=== PATIENT | female | born 1960 | race Caucasian/White ===

== ENCOUNTER 2019-06-08 11:27 | Inpatient (IN) | payer MEDICARE ==
[~2019-06-08] VITALS: Ht 170.2 cm; Wt 72.0 kg
--- NOTE | 2019-06-08 11:27 | NUR ---
PT TO ROOM VIA WC IN NO DISTRESS
[2019-06-08] MEDS ORDERED: PROTONIX40 M2 PO (11:45)
[2019-06-08] MEDS ORDERED: EQL STOOL SOFT100 MG PO (11:46)
[2019-06-08] MEDS ORDERED: DULOXETINE HCL60 MG PO (11:46)
[2019-06-08] MEDS ORDERED: MODAFINIL200 MG PO (11:47)
[2019-06-08] MEDS ORDERED: ROPINIROLE1 MG PO (11:48)
[2019-06-08] MEDS ORDERED: ATOMOXETINE40 MG PO (11:48)
[2019-06-08] MEDS ORDERED: MAGNESIUM OXID400 M2 PO (11:49)
[2019-06-08] MEDS ORDERED: BUSPIRONE10 MG PO (11:49)
[2019-06-08] MEDS ORDERED: ZOFRAN4 MG PO (11:50)
[2019-06-08] MEDS ORDERED: GABAPENTIN300 M2 PO (11:50)
[2019-06-08] MEDS ORDERED: PROPRANOLOL HC120 MG PO (11:51)
[2019-06-08] MEDS ORDERED: [UNRECOGNIZED DRUG - OTHER] (11:53)
[2019-06-08] MEDS ORDERED: BREO ELLIPTA 101 INH IN (11:54)
[2019-06-08] MEDS ORDERED: OXYCODONE5 M1 PO (11:55)
[2019-06-08] MEDS ORDERED: PROAIR HFA108 MCG/AC IN (11:55)
--- NOTE | 2019-06-08 12:18 | NUR ---
LEFT CHEST WALL IMPLANTED PORT ACCESS USING STERILE TECHNIQUE WITH GOOD ASPIRATE NOTED, PT TOLERATED WELL
[2019-06-08 13:02] LABS: HEMATOCRIT 22.2 % (37.0-47.0); HEMOGLOBIN 7.6 g/dl (12.0-16.0); MEAN CELL VOLUME 87.7 fL CALC (80.0-100.0); MEAN CORPUSCULAR HGB CONC 34.2 g/L CALC (32.0-36.0); NEUT# 0.09 thou/uL (2.00-7.15); RED BLOOD COUNT 2.53 mill/uL (4.20-5.60); RED CELL DISTRI WIDTH 17.1 % (11.5-15.5)
[2019-06-08 13:04] LABS: ALBUMIN 3.9 g/dL (3.2-5.0); ALKALINE PHOSPHATASE 102 u/l (38-126); ANION GAP 12 (6-22 (CALC)); BILIRUBIN, TOTAL 0.8 mg/dL (0.0-1.4); BUN 14 mg/dL (7-17); BUN/CREATININE RATIO 17 (12-20 (CALC)); CARBON DIOXIDE 27 mmol/l (22-30); CHLORIDE 103 mmol/l (95-108); CREATININE 0.8 mg/dL (0.5-1.0); GFR > 60 ML/MIN (>=60 (CALC)); GFR FOR AFR.AMER. > 60 ML/MIN (>=60 (CALC)); SGOT/AST 30 u/l (14-36); SODIUM 138 mmol/l (137-146); TOTAL PROTEIN 6.7 g/dL (6.3-8.2)
[2019-06-08 13:06] LABS: D-DIMER 0.56 mg/L (0.19-0.60); PROTHROMBIN TIME 10.7 SECONDS (9.0-12.5)
--- NOTE | 2019-06-08 13:34 | NUR ---
PT AWARE OF PLANNED ADMISSION AND VERBALOIZES CONSENT AND UNDERSTANDING
--- NOTE | 2019-06-08 13:55 | NUR ---
LABWORK DRAWN FOR TYPE AND SCREEN RELATED TO LOW HGB.
--- NOTE | 2019-06-08 15:02 | NUR ---
REPORT CALLED TO MARIETTA WOODS ON MED SURG.
--- NOTE | 2019-06-08 15:15 | NUR ---
PT TRANSFERRRED TO MED SURG ROOM 291 VIA WHEELCHAIR, ON TELE, FAMILY MEMBER AT SIDE AT TIME OF TRASNPORT, SANDEEP ALLISON AT BEDSIDE ON ARRIVAL AND NURSE MARIETTA WOODS AWARE OF ARRIVAL. MAXWELLILISA INSTRUCTED TO TAKE PERSONAL MEDICATIONS HOME WITH THEM
--- NOTE | 2019-06-08 15:15 | NUR ---
PT ARRIVED VIA STRETCHER. INTRODUCTIONS MADE. ORIENTED TO CALL LIGHT AND ROOM. DISCUSSED PLAN OF CARE.
[2019-06-08 15:29] VITALS: BP 128/72
--- NOTE | 2019-06-08 16:46 | NUR ---
PT DESMOND AGUIAR FROM OUTSIDE, DENIES ANY NEEDS.
--- NOTE | 2019-06-08 18:45 | NUR ---
REPORT FROM MARIETTA WOODS. PT SITTING UP IN BED WITH FAMILY MEMBER AT BEDSIDE. PT ON NEUTROPENIC PRECAUTIONS. NO APPARENT RESPIRATORY DISTRESS NOTED. PT REQUESTING APAP FOR GENERALIZED ACHES AND PAINS. DISCUSS POC. PT VERBALIZED UNDERSTANDING. CALL LIGHT WITHIN REACH. WILL CONTINUE TO MONITOR.
[2019-06-08 19:00] VITALS: BP 131/70
--- NOTE | 2019-06-08 23:46 | NUR ---
PT MEDICATED FOR BILATERAL LEG PAIN WITH PRN PAIN MEDICATION. SNACK PROVIDED UPON REQUEST. PT DENIES ANY OTHER WANTS OR NEEDS. NO APPARENT DISTRESS NOTED. CALL LIGHT WITHIN REACH. WILL CONTINUE TO MONITOR.
[2019-06-09 00:55] VITALS: BP 126/80
[2019-06-09 03:52] VITALS: BP 112/69
--- NOTE | 2019-06-09 04:30 | NUR ---
LABS OBTAINED FROM ACCESSED PORT. FLUSHED PER PROTOCOL. PT TOLERATED WELL.
[2019-06-09 05:35] LABS: ANION GAP 11 (6-22 (CALC)); BUN 17 mg/dL (7-17); BUN/CREATININE RATIO 20 (12-20 (CALC)); CARBON DIOXIDE 29 mmol/l (22-30); CHLORIDE 104 mmol/l (95-108); CREATININE 0.9 mg/dL (0.5-1.0); GFR > 60 ML/MIN (>=60 (CALC)); GFR FOR AFR.AMER. > 60 ML/MIN (>=60 (CALC)); SODIUM 140 mmol/l (137-146)
[2019-06-09 06:02] LABS: HEMATOCRIT 22.7 % (37.0-47.0); HEMOGLOBIN 7.7 g/dl (12.0-16.0); IMMATURE GRANULOCYTES 1.2 % (0.0-5.0); MEAN CORPUSCULAR HGB 30.2 pG CALC (26.0-32.0); MEAN CORPUSCULAR HGB CONC 33.9 g/L CALC (32.0-36.0); NEUT# 0.22 thou/uL (2.00-7.15); RED BLOOD COUNT 2.55 mill/uL (4.20-5.60)
[2019-06-09 08:37] VITALS: BP 126/79
--- NOTE | 2019-06-09 08:57 | NUR ---
ASSESSMENT DONE TELE IN PLACE. PT IS A&O X3. MEDICATED PT WITH ROXICODONE FOR PAIN IN LEGS SEE EMAR. PT HAS A DRY COUGH. FAMILY IN ROOM. PT STATED SHE NEEDS A REFILL ON MODAFINIL AND STATED SHE WILL ASK THE DOCTOR. PT REFUSED FOR ME TO SEND HER HOME MEDICATIONS TO PHARMACY. PT TOOK HER HOME MEDICATION ATOMOEXETINE AND PROPRANOLOL. CALL LIGHT IN REACH.
[2019-06-09 11:35] VITALS: BP 114/79
--- NOTE | 2019-06-09 12:00 | NUR ---
PT IS TRYING TO EAT HER LUNCH. FAMILY IN ROOM. PT DENIES NEEDS AT THIS TIME. CALL LIGHT IN REACH.
--- NOTE | 2019-06-09 16:30 | NUR ---
PT IS RESTING IN BED WITH NO S/S OF DISTRESS NOTED. PT DENIES NEEDS AT THIS TIME CALL LIGHT IN REACH.
[2019-06-09 16:46] VITALS: BP 106/71
--- NOTE | 2019-06-09 19:30 | NUR ---
PATIENT RESTING IN BED IN HIGH FOWLERS POSITION-APPETITE FOR DINNER WAS POOR. STATES THAT SHE CAN'T EAT AT THIS TIME. PATIENT IS ON REVERSE ISOLATION FOR SEVERE NEUTOPENIA-PRECAUTIONS MAINTAINED. TELE MONITOR IN PLACE. LEFT UPPER CHEST PORT ACCESSED AND APPEARS HEALTHY AT THIS TIME. SAFETY PRECAUTIONS REINFORCED. CALL LIGHT IN REACH. WILL CONT TO MONITOR.
[2019-06-09 19:45] VITALS: BP 106/67
--- NOTE | 2019-06-09 21:00 | NUR ---
RESTING IN BED-TEARFUL ABOUT CURRENT MEDICAL CONDITION. ALLOWED PATIENT TO VENT AND OFFERED REASSURANCE. PATIENT MEDICATED FOR BLE PAIN WITH ROXICODONE IR ORDERED FOR PAIN. PATIENT PROVIDED WITH PRINTOUT INFO SHEETS REGUARDING DARREN THAT SHE RECIEVED EARLIER TODAY. REVERSE ISOLATION MAINTAINED. CALL LIGHT IN REACH. WILL CONT TO MONITOR.
[2019-06-10] VITALS: BP 107/71
--- NOTE | 2019-06-10 | NUR ---
PATIENT RESTING IN BED WITH EYES CLOSED. RESP ARE EVEN AND UNLABORED. CALL LIGHT IN REACH. WILL CONT TO MONITOR.
[2019-06-10 04:00] VITALS: BP 104/63
--- NOTE | 2019-06-10 05:00 | NUR ---
PATIENT RESTING IN BED WITH HOB ELEVATED. LABS DRAWN WITHOUT ANY DIFFICULTY FROM LEFT UPPER CHEST PORT-GOOD BLOOD RETURN AND FLUSHED PER PROTOCOL ERIC SALINE AND HEPARIN. PATIENT WITH QUESTIONS ABOUT HER CHEMO TREATMENT CURRENT DIAGNOSIS. ALLOWED PATIENT TO VERBALIZE HER CONCERNS. TEARFUL AT TIMES. PATIENT C/O HEADACHE AND MEDICATED WITH TYLENOL 650MG PO FOR PAIN. REVERSE ISOLATION MAINTAINED. CALL LIGHT IN REACH. WILL CONT TO MONITOR.
[2019-06-10 06:16] LABS: ALBUMIN 3.6 g/dL (3.2-5.0); ALKALINE PHOSPHATASE 87 u/l (38-126); ANION GAP 11 (6-22 (CALC)); BILIRUBIN, TOTAL 0.5 mg/dL (0.0-1.4); BUN 15 mg/dL (7-17); BUN/CREATININE RATIO 18 (12-20 (CALC)); CARBON DIOXIDE 28 mmol/l (22-30); CHLORIDE 103 mmol/l (95-108); CREATININE 0.8 mg/dL (0.5-1.0); GFR > 60 ML/MIN (>=60 (CALC)); GFR FOR AFR.AMER. > 60 ML/MIN (>=60 (CALC)); POTASSIUM 3.6 mmol/l (3.5-5.1); SGOT/AST 21 u/l (14-36); SODIUM 139 mmol/l (137-146); TOTAL PROTEIN 6.4 g/dL (6.3-8.2)
[2019-06-10 06:34] LABS: HEMATOCRIT 21.4 % (37.0-47.0); HEMOGLOBIN 7.1 g/dl (12.0-16.0); IMMATURE GRANULOCYTES 4.8 % (0.0-5.0); MEAN CELL VOLUME 90.7 fL CALC (80.0-100.0); MEAN CORPUSCULAR HGB 30.1 pG CALC (26.0-32.0); MEAN CORPUSCULAR HGB CONC 33.2 g/L CALC (32.0-36.0); NEUT# 0.18 thou/uL (2.00-7.15); RED BLOOD COUNT 2.36 mill/uL (4.20-5.60); RED CELL DISTRI WIDTH 17.3 % (11.5-15.5)
--- NOTE | 2019-06-10 07:00 | NUR ---
SHIFT CHANGE REPORT, PT AWAKE ALERT AND ORIENTED SITTING UP IN BED, DENIES PAIN AT THIS TIME, VOICES CONCERN ABOUT HER MEDICATION WHICH SHE IS NOT ABLE TO TAKE HERE THEY ARE NOT DISPENSED AT OUR PHARMACY, ADVISED TO BRING MEDS FROM HOME BUT STATED SHE HAS NONE AT HOME. ADVISED TO ADDRESS CONCERNS WITH MD WHEN HE ROUNDS, CALL AVILES IN REACH, WILL CONTINUE TO MONITOR AND ADDRESS NEEDS.
[2019-06-10 09:46] VITALS: BP 124/60
--- NOTE | 2019-06-10 12:21 | NUR ---
DR WEST ROUNDED, ADDRESSED MEDICATION CONCERNS, ALL OTHER NEEDS ADDRESSED, FAMILY MEMBERS AT BEDSIDE.
[2019-06-10 15:00] VITALS: BP 111/63
--- NOTE | 2019-06-10 16:00 | NUR ---
MEDICATION CONCERNS ADDRESSED BY PHARMACIST AND BING FROM [facility] OBTAINED NEEDED, DEVILERED TO OUR PHARMACY FOR PT TO RECEIVE.
[2019-06-10 19:35] VITALS: BP 110/63
--- NOTE | 2019-06-10 20:21 | NUR ---
PATIENT RESTING IN BED ON FIRST ROUNDS WITH HOB ELEVATED. PATIENT IS AWAKE ALERT AND ORIENTEDX3. PATIENT IS ON NEUTROPENIC PRECAUTIONS AND THEY ARE BEING MAINTAINED. PATIENT WAS ABLE TO SPEAK TO THE DIETARY DEPT ON THE PHONE TO TRY TO GET MORE FOOD THAT SHE COULD EAT DUE TO HER POOR APPETITE. LEFT UPPER CHEST PORT ACCESSED-SITE APPEARS HEALTHY AT THIS TIME. TELE MONITOR IN PLACE. PATIENT WAS SET UP FOR SHOWER AND BED LINENS WERE CHANGED. BACK IN BED AT THIS TIME. SAFETY PRECAUTIONS REINFORCED. CALL LIGHT IN REACH. WILL CONT TO MONITOR.
--- NOTE | 2019-06-10 21:26 | NUR ---
PATIENT RESTING IN BED WITH HOB ELEVATED. HS MEDS WERE GIVEN. PATIENT MEDICATED FOR BLE AND GENERALIZED PAIN-6/10 ON THE PAIN SCALE WITH ROXICODONE IR 5MG PO. PATIENT GIVEN PRUNE JUICE FOR CONSTIPATION. CALL LIGHT IN REACH. WILL CONT TO MONITOR.
[2019-06-10 23:50] VITALS: BP 102/49
--- NOTE | 2019-06-11 00:21 | NUR ---
PATIENT RESTING IN BED WITH HOB ELEVATED. C/O HEADACHE-5/10 ON PAIN SCALE. PATIENT MEDICATED WITH TYLENOL 650MG PO FOR HEADACHE. PATIENT STATES THAT SHE HASN'T TAKEN HER MONAFINIL SINCE LAST WEEK-WILL BE RESTARTING THAT THIS MORNING. CALL LIGHT IN REACH. WILL CONT TO MONITOR.
[2019-06-11 03:14] VITALS: BP 106/65
--- NOTE | 2019-06-11 04:20 | NUR ---
PATIENT RESTING IN BED AT THIS TIME WITH HOB ELEVATED AND EYES CLOSED. PATIENT RESP ARE EVEN AND UNLABORED. EASY TO AROUSE. MORNING LAB WORK DRAWN FROM LEFT UPPER CHEST PORT WITHOUT ANY DIFFICULTY. GOOD BLOOD RETURN AND FLUSHED PER PROTOCOL WITH NS AND HEPARIN. SITE REMAINS HEALTHY AT TH IS TIME. PATIENT STATES THAT HER HEADACHE IS BETTER. PROVIDED WITH GATORADE PER PATIENT REQUEST. SAFETY PRECAUTIONS REINFORCED. CALL LIGHT IN REACH. WILL CONT TO MONITOR.
[2019-06-11 05:38] LABS: HEMATOCRIT 21.4 % (37.0-47.0); HEMOGLOBIN 7.3 g/dl (12.0-16.0); MEAN CELL VOLUME 89.9 fL CALC (80.0-100.0); MEAN CORPUSCULAR HGB 30.7 pG CALC (26.0-32.0); MEAN CORPUSCULAR HGB CONC 34.1 g/L CALC (32.0-36.0); NEUT# 0.51 thou/uL (2.00-7.15); RED BLOOD COUNT 2.38 mill/uL (4.20-5.60); RED CELL DISTRI WIDTH 17.8 % (11.5-15.5)
[2019-06-11 06:01] LABS: ANION GAP 12 (6-22 (CALC)); BUN 14 mg/dL (7-17); BUN/CREATININE RATIO 14 (12-20 (CALC)); CARBON DIOXIDE 29 mmol/l (22-30); CHLORIDE 102 mmol/l (95-108); GFR 57 ML/MIN (>=60 (CALC)); GFR FOR AFR.AMER. > 60 ML/MIN (>=60 (CALC)); SODIUM 139 mmol/l (137-146)
--- NOTE | 2019-06-11 06:45 | NUR ---
RECIEVED REPORT FROM PEGGY MANDUJANO. ASSUMED PT CARE.
[2019-06-11 08:30] VITALS: BP 112/57
--- NOTE | 2019-06-11 08:30 | NUR ---
PT RESTING IN BED, A&OX3, ABLE TO MAKE NEEDS KNOWN. ISOLATION PRECAUTIONS INTACT. AFEBRILE. ASSESSMENT COMPLETED. RESPIRATIONS EVEN/UNLABORED. PT STATED PAIN7/10, WILL MEDICATE ORDERED. CALL LIGHT IN REACH. WILL MONITOR.
--- NOTE | 2019-06-11 10:00 | NUR ---
DR. WEST AT BEDSIDE FOR ASSESSMENT AND TO DISCUSS PLAN OF CARE. NEW ORDERS RECIEVED.
--- NOTE | 2019-06-11 10:20 | NUR ---
FAMILY ARRIVED AT BEDSIDE.
[2019-06-11 10:54] VITALS: BP 134/70
--- NOTE | 2019-06-11 13:15 | NUR ---
PT RESTING IN BED, FAMILY REMAINS AT BEDSIDE. PT OFFERS NO COMPLAINTS AT THIS TIME. CALL LIGHT IN REACH. WILL MONITOR.
--- NOTE | 2019-06-11 14:14 | NUR ---
PT UP TO SIDE OF BED AFTER TRANSFERRING [place] [facility] PT MEDICATED FOR POST OP PAIN 04/23. PT PREFERS TO SIT ON SIDE OF BED AT THIS TIME . CALL LIGHT IN REACH. WILL MONITOR.
[2019-06-11 15:26] VITALS: BP 107/68
--- NOTE | 2019-06-11 18:20 | NUR ---
FAMILY ARRIVED AT BEDSIDE. PT RESTING IN BED. REVERSE ISOLATION IN PLACE. CALL LIGHT IN REACH. WILL MONITOR.
--- NOTE | 2019-06-11 19:46 | NUR ---
PATIENT RESTING IN BED WITH HOB ELEVATED. AWAKE ALERT AND ORIENTEDX3. PATIENT WITH FLAT AFFECT AT THIS TIME. NO COMPLAINTS. REVERSE ISOLATIONS REMAINS IN PLACE AND MAINTAINED. TELE MONITOR IN PLACE. LEFT UPPER CHEST PORT ACCESSED AND APPEARS HEALTHY AT THIS TIME. SAFETY PRECAUTIONS REINFORCED. CALL LIGHT IN REACH. WILL CONT TO MONITOR.
[2019-06-11 19:52] VITALS: BP 111/66
--- NOTE | 2019-06-11 21:19 | NUR ---
PATIENT SITTING UP IN CHAIR AT THIS TIME-PATIENT WITH MULTIPLE CONCERNS REGUARDING STAY. STATES THAT SHE DID HAVE BM TODAY BUT NOW WITH RECTAL PAIN FROM HEMMEROIDS. OFFERED PATIENT VASELINE TO BE APPLIED FOR COMFORT. HS MEDS GIVEN ORDERED. JANE LOREDO RN NSG ORE CRUSHING DUST COLLECTOR MADE AWARE OF PATIENT CONCERNS AND SPEAKING WITH PATIENT AT THIS TIME. WILL CONT TO MONITOR.
--- NOTE | 2019-06-11 23:14 | NUR ---
PATIENT RESTING IN BED AT THIS TIME-PROVIDED WITH TUCKS PAIN FOR RECTAL PAIN/HEMERROIDS. PATIENT STATES THAT SHE CONT TO HAVE BM'S-MORE SOFT NOW. MEDICATED FOR PAIN WITH ROXICODONE IR 5MG PO ORDERED. CALL LIGHT IN REACH. WILL CONT TO MONITOR.
[2019-06-12 00:32] VITALS: BP 104/59
--- NOTE | 2019-06-12 04:37 | NUR ---
PATIENT RESTING IN BED WITH HOB ELEVATED-STATES THAT SHE IS FEELING BETTER THIS MORNING. LAB WORK DRAWN FROM LEFT UPPER CHEST PORT=GOOD BLOOD RETURN. PORT FLUSHED AFTER BLOOD DRAW WITH NS AND HEP PER PROTOCOL. REVERSE ISOLATION MAINTAINED. TELE MONITOR IN PLACE. CALL LIGHT IN REACH. WILL CONT TO MONITOR.
[2019-06-12 04:56] VITALS: BP 106/61
[2019-06-12 05:38] LABS: HEMOGLOBIN 7.3 g/dl (12.0-16.0); MEAN CELL VOLUME 90.2 fL CALC (80.0-100.0); MEAN CORPUSCULAR HGB 29.9 pG CALC (26.0-32.0); MEAN CORPUSCULAR HGB CONC 33.2 g/L CALC (32.0-36.0); NEUT# 2.3 thou/uL (2.00-7.15); RED BLOOD COUNT 2.44 mill/uL (4.20-5.60)
[2019-06-12 05:59] LABS: ANION GAP 11 (6-22 (CALC)); BUN 20 mg/dL (7-17); BUN/CREATININE RATIO 21 (12-20 (CALC)); CARBON DIOXIDE 29 mmol/l (22-30); CHLORIDE 101 mmol/l (95-108); GFR 57 ML/MIN (>=60 (CALC)); GFR FOR AFR.AMER. > 60 ML/MIN (>=60 (CALC)); POTASSIUM 3.9 mmol/l (3.5-5.1); SODIUM 137 mmol/l (137-146)
[2019-06-12 06:18] LABS: IMMATURE GRANULOCYTES 6.6 % (0.0-5.0)
--- NOTE | 2019-06-12 08:00 | NUR ---
REPORT RECEIVED FROM PEGGY MANDUJANO. PT SITTING UPRIGHT IN BED. SLEEPING. CALL LIGHT WITHIN REACH.
[2019-06-12 09:02] VITALS: BP 114/53
--- NOTE | 2019-06-12 09:15 | NUR ---
PT SITTING UPRIGHT IN BED. DENIES PAIN AT THIS TIME. REPORTING OF CONCERNS AND PAIN MEDICATION SCHEDULE REVIEWED. PLAN OF CARE REVIEWED. NO SOB, PT. ON RA. TELE UNIT IN PLACE, 0800 READING OF SR, 95. ALERT& ORIENTED X 4. AMBULATES WITH STANDBY ASSIST, REPORTS INTERMITTENT LIGHT-HEADEDNESS WITH AMBULATION. LEFT CHEST PORT ACCESSED, DRESSING INTACT, NO S/S INFECTION AT SITE. REPORTS LAST BM 06/11/19 IN PM. CALL LIGHT REVIEWED AND IN REACH. FALL PRECAUTIONS REINFORCED. PT STATES UNDERSTANDING.
[2019-06-12] MEDS ORDERED: LEVAQUIN750 MG PO (09:26)
--- NOTE | 2019-06-12 09:42 | NUR ---
DR. WEST IN TO SEE PT. DISCHARGE HOME DISCUSSED AND AGREED UPON BY BOTH PARTIES. PHYSICAL THERAPY EVAL PRIOR TO DISCHARGE ORDERED. MONICA, PT TO EVAL PER RODERICK IN PHYSICAL THERAPY.
--- NOTE | 2019-06-12 11:27 | NUR ---
LEFT CHEST PORT FLUSHED WITH NS AND HEPARIN PER POLICY, PRIOR TO DEACCESSING. BANDAID DRESSINB APPLIED TO AREA. PT TOLERATED WELL. Discharge instructions given. Patient verbalizes understanding of same. Discharged in stable condition via Wheelchair to Home with family. All belongings sent with pt.
== END 2019-06-12 11:27 | DRG 809 ==
LOC: ED 11:27 → ED-I 13:12 → ED 13:29 → MS2 13:30
PROVIDERS: ADMIT Internal Medicine; ATTEND Internal Medicine
DX: D70.1 Agranulocytosis secondary to cancer chemotherapy (principal); C34.2 Malignant neoplasm of middle lobe, bronchus or lung; T45.1X5A Adverse effect of antineoplastic and immunosuppressive drugs, initial encounter; F32.9 Major depressive disorder, single episode, unspecified; D72.819 Decreased white blood cell count, unspecified; R05 Cough; I10 Essential (primary) hypertension; J44.9 Chronic obstructive pulmonary disease, unspecified; F41.9 Anxiety disorder, unspecified; D64.9 Anemia, unspecified; M06.9 Rheumatoid arthritis, unspecified; G62.9 Polyneuropathy, unspecified; G47.419 Narcolepsy without cataplexy; Z87.891 Personal history of nicotine dependence; Z79.899 Other long term (current) drug therapy
CPT/HCPCS: J1442; Q9967

== ENCOUNTER 2020-09-23 07:10 | Inpatient (IN) | payer MEDICARE, MEDICAID ==
[~2020-09-23] VITALS: Ht 170.2 cm; Wt 57.6 kg
[~2020-09-23 07:10] MED LIST: ATOMOXETINE40 MG PO; BREO ELLIPTA 101 INH IN; BUSPIRONE10 MG PO; DULOXETINE HCL60 MG PO; EQL STOOL SOFT100 MG PO; GABAPENTIN300 M2 PO; LEVAQUIN750 MG PO; MAGNESIUM OXID400 M2 PO; MODAFINIL200 MG PO; OXYCODONE5 M1 PO; PROAIR HFA108 MCG/AC IN; PROPRANOLOL HC120 MG PO; PROTONIX40 M2 PO; ROPINIROLE1 MG PO; ZOFRAN4 MG PO; [UNRECOGNIZED DRUG - OTHER]
--- NOTE | 2020-09-23 07:10 | NUR ---
PATIENT TO ROOM VIA EMS AND PHYSICIAN NOTIFIED OF PATIENT STATUS
--- NOTE | 2020-09-23 07:40 | NUR ---
BEFORE ADMIN OF NITRO AND MORPHINE, WAS NOTIFIED OF BP 116/82. PT APPROVED FOR ADMIN OF BOTH MEDICATIONS. NITRO WAS GIVEN FIRST. BP WAS MONITORED FOR 10 MINS BEFORE GIVING THE MORPHINE. BP DROPED TO 101 SYSTOLIC AND STARTED TO RISE AFTER THE THIRD CYCLE. EACH CYCLE WAS ABOUT 2-3 MIN INTERVALS. HER BP STARTED TO INCREASE TO 111 SYSTOLIC. MORPHINE ADMINISTERED. WILL CONTINUE TO MONITOR.
[2020-09-23 07:58] LABS: IMMATURE GRANULOCYTES 0.2 % (0.0-5.0); MEAN CELL VOLUME 91.7 fL CALC (80.0-100.0); MEAN CORPUSCULAR HGB 29.1 pG CALC (26.0-32.0); MEAN CORPUSCULAR HGB CONC 31.7 g/dL CAL (32.0-36.0); NEUT# 7.12 thou/uL (2.00-7.15); RED BLOOD COUNT 3.13 mill/uL (4.20-5.60); RED CELL DISTRI WIDTH 14.6 % (11.5-15.5)
[2020-09-23 08:01] LABS: HEMATOCRIT 28.7 % (37.0-47.0); HEMOGLOBIN 9.1 g/dl (12.0-16.0)
--- NOTE | 2020-09-23 08:30 | NUR ---
PT IS RESTING ON STRETHER AND STATES THAT HER PAIN HAS SUPSIDED TO 3/10 AFTER ADMIN OF MORPHINE AND ASPIRIN. BP A BIT ON THE LOW SIDE WITH SYSTOLIC IN HIGH 90s. NOTIFIED
[2020-09-23 08:32] LABS: ALKALINE PHOSPHATASE 84 u/l (38-126); BILIRUBIN, TOTAL 0.5 mg/dL (0.0-1.4); BUN 12 mg/dL (7-17); BUN/CREATININE RATIO 15 (12-20 (CALC)); CARBON DIOXIDE 26 mmol/l (22-30); CHLORIDE 101 mmol/l (95-108); CREATININE 0.7 mg/dL (0.5-1.0); GFR > 60 ML/MIN (>=60 (CALC)); GFR FOR AFR.AMER. > 60 ML/MIN (>=60 (CALC)); SGOT/AST 18 u/l (14-36); SODIUM 135 mmol/l (137-146); TOTAL PROTEIN 7.4 g/dL (6.3-8.2)
[2020-09-23 08:33] LABS: ALBUMIN 3.5 g/dL (3.2-5.0); ANION GAP 12 (6-22 (CALC)); POTASSIUM 3.5 mmol/l (3.5-5.1)
[2020-09-23 08:41] LABS: ACT PARTIAL THROMBO TIME 72.9 SECONDS (20.0-32.5); INTERNATIONAL NORMALIZED RATIO 1.1 RATIO (0.7-1.3); PROTHROMBIN TIME 10.6 SECONDS (9.0-12.5)
--- NOTE | 2020-09-23 09:30 | NUR ---
FLUIDS FLOWING INTO PATENT IV. DENIES ANY NEEDS. CALL LIGHT WITHIN REACH
--- NOTE | 2020-09-23 10:30 | NUR ---
REPORT GIVEN TO EMMANUELLE
[2020-09-23] MEDS ORDERED: ALPRAZOLAM ER0.5 MG PO (11:01)
--- NOTE | 2020-09-23 11:34 | NUR ---
PT HAS NO COMPLAINTS NO DISTRESS
[2020-09-23] MEDS ORDERED: CYMBALTA60 MG PO (12:02)
[2020-09-23] MEDS ORDERED: BUSPAR10 M1 PO (12:03)
[2020-09-23] MEDS ORDERED: PROTONIX40 M2 PO (12:03)
[2020-09-23] MEDS ORDERED: PROPRANOLOL HC120 MG PO (12:04)
[2020-09-23] MEDS ORDERED: DEXAMETHASONE2 MG PO (12:05)
[2020-09-23] MEDS ORDERED: ROPINIROLE1 MG PO (12:05)
[2020-09-23] MEDS ORDERED: OXYCODONE5 M1 PO (12:05)
--- NOTE | 2020-09-23 12:11 | NUR ---
PATIENT ARRIVED UP TO UNIT FROM ER VIA WHEELCHAIR. ALERT AND ORIENTED AT THIS TIME CALL LIGHT WITHIN REACH SIDERAILS UP X2 . PATIENT ORIENTED TO ROOM AND SURROUNDING. PATIENTS UPPER LEFT PORT ACCESSED AND IS PATENT. ELEANOR VOICES NO CONCERNS CURRENTLY. CRISTOPHER PAIN AND ALL OTHER NEEDS.
--- NOTE | 2020-09-23 12:27 | NUR ---
Transfer Information [place]red [place] [facility] [place] Given to: JARED Transported by: [facility] [employer] Other Transported with: X Nurse Transporter X Patent IV X O2 X Detective Investigator
[2020-09-23 12:41] VITALS: BP 101/59
--- NOTE | 2020-09-23 14:49 | NUR ---
S: CINDY SAVAGE is a 59 F who presents with chest pain. She has a history of stage 4 lung cancer, COPD, depression, hypertension and anxiety. All medications in patient's chart were reviewed. O: VS: BP 101/59 mm hg, P 81 bmp, RR 18 breaths per min,T 99.2 F W 57.9 kg, 170 cm, Scr= 0.7 mg/dL,CrCl= 80.10 ml/min A: Blood culture is pending. P: Patient is on Zoysn 4.5 IV Q6H. Vancomycin ordered for pharmacy to dose. Start Vancomycin 1000 MG IV Q12H. Vancomycin trough is drawn before the 4th dose on 09/24/20 at 19:30. Vancomycin goal trough is between 15-20 mcg/ml Pharmacy will follow and or advise on antibiotics use as needed.
[2020-09-23 15:05] VITALS: BP 124/72
--- NOTE | 2020-09-23 16:12 | NUR ---
PATIENT RESTING IN BED AT THIS TIME CALL LIGHT WITHIN REACH SIDERAILS UPX 2. PATIENT DENIES ANY PAIN AT THIS TIME. PATIENT HAS O2 ON AT 2 L. PATIENT DENIES ANY SHORTNESS OF BREATH AND DENIES PAIN. PATIENT ENCOURAGE TO CALL FOR NURSE IF SHE WERE TO HAVE ANY PAIN OR NEED PAIN MEDICATION AT ANYTIME.
--- NOTE | 2020-09-23 17:30 | NUR ---
PATIENT'S BLOOD DRAW PULLED FROM PORT AT THIS TIME. 10CC OF BLOOD PULLED AND WASTED AND LABS DRAWN AND SENT FOR TROPIN LEVEL AT THIS TIME. LEFT UPPER PORT SALINE FLUSHED AND ANTIBIOTIC (PIPERCILLIN) CONNECTED AT THIS TIME FOR INFUSION. PATIENT TOLERATED PROCEEDURE WITHOUT COMPLAINTS.
--- NOTE | 2020-09-23 18:45 | NUR ---
PATIENT GIVEN INSENTIVE SPIROMOTOR AND INSTRUCTED ON HOW TO USE. PATIENT VERBALIZES UNDERSTANDING AND RE-DEMONSTRATED PROPER TECHNIQUE.
[2020-09-23 19:00] VITALS: BP 101/56
--- NOTE | 2020-09-23 19:39 | NUR ---
PT ASSESSED AND ANTIBIOTIC THERAPY ADMINISTERED AT THIS TIME. PT STATES "I JUST NEED REST." SHE WAS ALSO MEDICATED FOR 100.6 FEVER AT THIS TIME. I ATTEMPTED TO REMOVE A COUPLE OF BLANKETS, BUT SHE REFUSED STATING, "YOU ARE NOT TAKING MY BLANKETS." TYLENOL PROVIDED. EXTRA PILLOW POSITIONED UNDER RIGHT HIP FOR PRESSURE RELEIF. MEDICATION SCHEDULE AND POC DISCUSSED WITH PT. SHE IS NOW TALKING ON CELL PHONE.
--- NOTE | 2020-09-23 21:55 | NUR ---
IV ANTIBIOTIC THERAPY COMPLETED AT THIS TIME. PORT HAS BEEN FLUSHED W/NS AND HEP LOCKED AT THIS TIME. MEDICATIONS ADMINISTERED ORDERS PROVIDE AND TEMP RECHECKED @99.9 PT DENIES ANY OTHER NEEDS AT THIS TIME. LEFT SITTING UPRIGHT IN BED WITH LIGHTS AND TV ON, SHE IS LOOKING AT PICTURES ON HER PHONE.
--- NOTE | 2020-09-24 00:05 | NUR ---
ASSISTED PT TO RESTROOM AND BACK TO BED, STABLE BUT WEAK ON HER FEET AMBULATING. BLOOD DRAWN FOR LAB AT THIS TIME AND IV ANTIBIOTIC THERAPY ADMINISTERED AT THIS TIME. CALL LIGHT LEFT AT SIDE AND LIGHTS TURNED DOWN FOR COMFORT.
--- NOTE | 2020-09-24 01:12 | NUR ---
IV ANTIBIOTIC THERAPY COMPLETED AT THIS TIME. PORT FLUSHED WITH NS AND HEP LOCKED. PT IS SLEEPING.
[2020-09-24 04:00] VITALS: BP 128/69
--- NOTE | 2020-09-24 04:30 | NUR ---
PT SLEEPING, NO S/O DISTRESS NOTED. CALL LIGHT AT SIDE.
--- NOTE | 2020-09-24 06:10 | NUR ---
IV ANTIBIOTIC THERAPY COMPLETED AT THIS TIME. PORT FLUSHED WITH NS AND HEP LOCKED AT THIS TIME.
[2020-09-24 06:23] LABS: HEMATOCRIT 27.9 % (37.0-47.0); HEMOGLOBIN 8.8 g/dl (12.0-16.0); IMMATURE GRANULOCYTES 0.4 % (0.0-5.0); MEAN CELL VOLUME 92.4 fL CALC (80.0-100.0); MEAN CORPUSCULAR HGB 29.1 pG CALC (26.0-32.0); MEAN CORPUSCULAR HGB CONC 31.5 g/dL CAL (32.0-36.0); NEUT# 7.09 thou/uL (2.00-7.15); RED BLOOD COUNT 3.02 mill/uL (4.20-5.60); RED CELL DISTRI WIDTH 14.7 % (11.5-15.5)
[2020-09-24 07:13] LABS: ALKALINE PHOSPHATASE 79 u/l (38-126); ANION GAP 10 (6-22 (CALC)); BILIRUBIN, TOTAL 0.6 mg/dL (0.0-1.4); BUN 9 mg/dL (7-17); BUN/CREATININE RATIO 11 (12-20 (CALC)); CALCULATED LDLCHOLESTEROL 109 mg/dL (62-129 (CALC)); CARBON DIOXIDE 27 mmol/l (22-30); CHLORIDE 101 mmol/l (95-108); CHOLESTEROL HDL RATIO 4.6 (<4.4 (CALC)); CREATININE 0.8 mg/dL (0.5-1.0); GFR > 60 ML/MIN (>=60 (CALC)); GFR FOR AFR.AMER. > 60 ML/MIN (>=60 (CALC)); HDL CHOLESTEROL 35 mg/dL (>=40); MAGNESIUM 1.5 mg/dL (1.6-2.3); POTASSIUM 3.8 mmol/l (3.5-5.1); SGOT/AST 15 u/l (14-36); SODIUM 135 mmol/l (137-146); TOTAL CHOLESTEROL 163 mg/dl (0-199); TOTAL PROTEIN 6.6 g/dL (6.3-8.2); TOTAL TRIGLYCERIDES 96 mg/dl (30-149); VLDL CHOLESTROL 19 mg/dl (2-49 (CALC))
[2020-09-24 08:15] VITALS: BP 98/60
[2020-09-24 08:25] VITALS: BP 85/50
--- NOTE | 2020-09-24 08:30 | NUR ---
REPORT WAS RECEIVED FROM YOVANNY. ASSESSMENT DONE. PATIENT IS A&O X3. PATIENT STATED PAIN IS LESS. PATIENT DENIES PAIN MEDICATION AT THIS TIME. LUNGS SOUND DIMINISHED. JACOBO PORT FLUSHED WELL AND BLOOD RETURN. PATIENT DENIED PAIN WHEN PORT WAS FLUSHED. SAFETY PRECAUTIONS REINFORCED AND CALL LIGHT IN REACH.
--- NOTE | 2020-09-24 12:01 | NUR ---
PATIENT IS SITTING IN THE COUCH WITH NO S/S OF DISTRESS NOTED. PATIENT USING HER CELL PHONE. PATIENT DENIES NEEDS. CALL LIGHT IN REACH.
[2020-09-24 14:55] VITALS: BP 98/60
--- NOTE | 2020-09-24 15:19 | NUR ---
PATIENT IS RESTING IN BED. PATIENT STATED SHE HAS NO PAIN AT THIS TIME. PATIENT DENIES ANY NEEDS AT THIS TIME. CALL LIGHT IN REACH.
--- NOTE | 2020-09-24 19:55 | NUR ---
VANCOMYCIN TROUGH COLLECTED FROM PORT W/O DIFFICULTY. FLUSHED PER [facility] POLICY. SENT TO LAB. PT DENIES ANY NEEDS AT THIS TIME. DENIES PAIN. STATES "IM JUST TIRED." CALL AVILES WITHIN REACH, AGREES TO CALL PRN.
[2020-09-24 20:00] VITALS: BP 94/61
--- NOTE | 2020-09-24 21:08 | NUR ---
VANCO TROUGH RECEIVED, 11 ug/ml. VANCO TO BE GIVEN DOSED ON .
--- NOTE | 2020-09-24 21:30 | NUR ---
PHYSICAL ASSESMENT COMPLETE. SCHEDULED MEDICATIONS ADMINISTERED, SEE E-MAR. MICKY PROVIDED PER PTS REQUEST. PT DENIES FURTHER NEEDS AT THIS TIME. PLAN OF CARE REVIEWED. PT VERBALIZES UNDERSTANDING AND DENIES QUESTIONS. CALL AVILES WITHIN REACH, AGREES TO CALL PRN.
[2020-09-25] VITALS: BP 95/59
--- NOTE | 2020-09-25 01:30 | NUR ---
PT LAYING IN BED WITH EYES CLOSED, APPEARS TO BE SLEEPING COMFORTABLY. RESPIRATIONS REGULAR AND UNLABORED. NO APPARENT DISTRESS. CALL AVILES REMAINS WITHIN REACH.
[2020-09-25 04:00] VITALS: BP 92/57
--- NOTE | 2020-09-25 04:59 | NUR ---
AM LABS DRAWN FROM PORT, PT REPORTS PAIN AT PORT INSERTION SITE. PORT APPEARS TO BE PATENT WITH GOOD BLOOD RETURN. PAIN AND COUGH MEDICINE ADMINISTERED PER PTS REQUEST, SEE E-MAR.
[2020-09-25 05:48] LABS: HEMATOCRIT 27.3 % (37.0-47.0); HEMOGLOBIN 8.5 g/dl (12.0-16.0); MEAN CELL VOLUME 93.2 fL CALC (80.0-100.0); MEAN CORPUSCULAR HGB CONC 31.1 g/dL CAL (32.0-36.0); RED BLOOD COUNT 2.93 mill/uL (4.20-5.60); RED CELL DISTRI WIDTH 14.5 % (11.5-15.5)
[2020-09-25 06:11] LABS: ANION GAP 10 (6-22 (CALC)); BUN 14 mg/dL (7-17); BUN/CREATININE RATIO 18 (12-20 (CALC)); CARBON DIOXIDE 26 mmol/l (22-30); CHLORIDE 106 mmol/l (95-108); CREATININE 0.8 mg/dL (0.5-1.0); GFR > 60 ML/MIN (>=60 (CALC)); GFR FOR AFR.AMER. > 60 ML/MIN (>=60 (CALC)); POTASSIUM 3.9 mmol/l (3.5-5.1); SODIUM 138 mmol/l (137-146)
[2020-09-25 07:26] VITALS: BP 82/48
--- NOTE | 2020-09-25 07:26 | NUR ---
PT RESTING IN BED, NO SIGNS OF DISTRESS NOTED, RESP EVEN AND UNLABORED. PT ALERT AND ORIENTED X3, NO EDEMA. PT HAS IV FLUIDS INFUSING TO L UPPER CHEST PORT. DISCUSSED POC, PT MEDICATED PER MAR. ASSESSMENT COMPLETED, CALL LIGHT IN REACH,CONTINUE TO MONITOR.
--- NOTE | 2020-09-25 08:34 | NUR ---
S: CINDY SAVAGE is a 59 F who presents with chest pain. She has a history of stage 4 lung CA, COPD, Depression, HTN, Anxiety. All medications in patient's chart were reviewed. O: VS: BP 82/48 mmHg, P 73 bpm,18 bpm,T 97.6 F W 57.606 kg, HT 170.18 cm, Scr= 0.7 mg/dL,CrCl= 80.1 ml/min A: Blood culture shows no growth. Sputum culture is pending. P: Patient is on Zosyn 4.5 g IV Q6H. Vancomycin ordered for pharmacy to dose. Start Vancomycin 1.25 g IV Q12H. Vancomycin trough is drawn before the 4th dose on 09/24/20 @ 19:30. Vancomycin trough is 11. Pharmacy will follow and/or advise on antibiotics use as needed.
[2020-09-25 11:22] VITALS: BP 100/54
--- NOTE | 2020-09-25 11:22 | NUR ---
PT SITTING IN CHAIR AT BEDSIDE, IV ANTIBIOTIC HUNG, NO SIGNS OF DISTRESS, VOICES NO NEEDS OR COMPLAINTS AT THIS TIME, CALL LIGHT IN REACH,CONTINUE TO MONITOR.
[2020-09-25 15:05] VITALS: BP 114/60
--- NOTE | 2020-09-25 16:18 | NUR ---
PT RESTING IN BED, NO SIGNS OF DISTRESS NOTED, RESP EVEN AND UNLABORED, VOICES NO NEEDS OR COMPLAINTS AT THIS TIME, CALL LIGHT IN REACH,CONTINUE TO MONITOR.
[2020-09-25 19:00] VITALS: BP 104/57
--- NOTE | 2020-09-25 19:45 | NUR ---
RECIEVED REPORT FROM ESTHER CAMPUZANO. PT RESTING IN BED. INTRODUCED SELF TO PT. PT IS A/O X 3. ASSESSMENT COMPLETE AND VS OBTAINED. RESPIRATIONS ARE EVEN AND UNLABORED, PT IS ON ROOMAIR. TELE IN PLACE. LAST BM 09/22- BUT PT IS REFUSING AID, STATES "IT BECAUSE I'M NOT HOME. LCW PORT IN PLACED & ACCESSED, SITE IS CLEAN, DRY & INTACT. NO S/SX OF DISTRESS OE DISCOMFORT NOTED AT THIS TIME. 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 SHE IS ALSO STATES THAT SHE IS STRUGGLING TO COME WITH TO TERM THAT SHE IS UNABLE TO CARE FOR OTHERS ANYMORE, BECAUSE OF HER OWN HEALTH HEALTH ISSUES. PER JUSTEN, THESE CONCERNS WERE BROUGHT UP TO THE DRAPERY AND UPHOLSTERY ESTIMATOR DURING DAY SHIFT, BUT SHE WAS UNABLE TO SPEAK WITH HER TODAY BUT PLANS ON DOING SO TOMORROW. I WILL PROVIDE EMOTION SUPPORT AND COMFORT NEEDED. ALL SAFETY & UNIVERSAL PRECAUTIONS ARE IN PLACE. BED IN LOWEST POSITION W/ WHEELS LOCKED AND SIDE RAILS UP X2. CALL LIGHT WITHIN REACH. WILL CONTINUE TO MONITOR FOR COMFORT AND SAFETY.
--- NOTE | 2020-09-25 23:40 | NUR ---
PATIENT LAYING IN BED SLEEPING, NO S/SX OF DISTRESS OBSERVED AT THIS TIME. WILL CONTINUE TO MONITOR FOR COMFORT AND SAFETY.
[2020-09-26] VITALS: BP 105/60
--- NOTE | 2020-09-26 03:55 | NUR ---
PATIENT IS RESTING IN BED, RESPIRATION ARE EVEN AND NON-LABORED. NO S/SX OF DISTRESS OBSERVED. SAFETY MEASURE ARE IN PLACE AND CALL LIGHT WITHIN REACH, WILL CONTINUE TO MONITOR.
[2020-09-26 04:00] VITALS: BP 101/68
[2020-09-26 07:24] VITALS: BP 118/67
--- NOTE | 2020-09-26 08:15 | NUR ---
PATIENT IS RESTING IN BED. ASSESSMENT DONE. PATIENT DENIES ANY PAIN AT THIS TIME. PATIENT HAS NOT HAD A BM FOR A FEW DAYS. PATIENT REFUSED MEDICATION FOR CONSTIPATION. PATIENT STATED SHE IS PASSING GAS. TELE IN PLACE. LUNGS SOUND DIMINISHED. PATIENT DENIES ANY NEEDS AT THIS TIME. CALL LIGHT IN REACH.
[2020-09-26] MEDS ORDERED: LEVOFLOXACIN750 MG PO (09:31)
[2020-09-26] MEDS ORDERED: BIOTUSSIN PO (09:31)
--- NOTE | 2020-09-26 12:11 | NUR ---
Discharge instructions given. Patient verbalizes understanding of same. Discharged in stable condition via Wheelchair to Home with staff. All belongings sent with pt.
== END 2020-09-26 12:11 | disposition home or self-care (01) | DRG 194 ==
LOC: ED 07:10 → ED-I 10:27 → ED 10:37 → MS2 10:38
PROVIDERS: Nurse Practitioner; Student in an Organized Health Care Education/Training Program; ADMIT Internal Medicine; ATTEND Internal Medicine
DX: J18.9 Pneumonia, unspecified organism (principal); J44.0 Chronic obstructive pulmonary disease with (acute) lower respiratory infection; C34.91 Malignant neoplasm of unspecified part of right bronchus or lung; C79.9 Secondary malignant neoplasm of unspecified site; R91.1 Solitary pulmonary nodule; G89.3 Neoplasm related pain (acute) (chronic); F41.9 Anxiety disorder, unspecified; F32.9 Major depressive disorder, single episode, unspecified; M06.9 Rheumatoid arthritis, unspecified; Z87.891 Personal history of nicotine dependence; Z90.2 Acquired absence of lung [part of]; Z79.899 Other long term (current) drug therapy; Z92.3 Personal history of irradiation; Z20.828 Contact with and (suspected) exposure to other viral communicable diseases
CPT/HCPCS: J1650; J3370; J3475; Q9967

== ENCOUNTER 2020-11-15 06:40 | Emergency (ER) | payer MEDICARE, MEDICAID ==
[~2020-11-15] VITALS: Ht 170.2 cm; Wt 65.0 kg
[~2020-11-15 06:40] MED LIST changes: +ALPRAZOLAM ER0.5 MG PO; +BIOTUSSIN PO; +BUSPAR10 M1 PO; +CYMBALTA60 MG PO; +DEXAMETHASONE2 MG PO; +LEVOFLOXACIN750 MG PO
[2020-11-15 07:56] LABS: IMMATURE GRANULOCYTES 0.4 % (0.0-5.0); MEAN CORPUSCULAR HGB 28.3 pG CALC (26.0-32.0); MEAN CORPUSCULAR HGB CONC 31.5 g/dL CAL (32.0-36.0); NEUT# 2.9 thou/uL (2.00-7.15); RED BLOOD COUNT 4.2 mill/uL (4.20-5.60); RED CELL DISTRI WIDTH 14.9 % (11.5-15.5)
[2020-11-15 07:57] LABS: HEMATOCRIT 37.8 % (37.0-47.0); HEMOGLOBIN 11.9 g/dl (12.0-16.0)
[2020-11-15 08:16] LABS: ACT PARTIAL THROMBO TIME 49.5 SECONDS (20.0-32.5); PROTHROMBIN TIME 10.4 SECONDS (9.0-12.5)
[2020-11-15 08:19] LABS: ALKALINE PHOSPHATASE 86 u/l (38-126); BILIRUBIN, TOTAL 0.5 mg/dL (0.0-1.4); BUN 15 mg/dL (7-17); BUN/CREATININE RATIO 23 (12-20 (CALC)); CARBON DIOXIDE 25 mmol/l (22-30); CHLORIDE 97 mmol/l (95-108); CREATININE 0.7 mg/dL (0.5-1.0); GFR > 60 ML/MIN (>=60 (CALC)); GFR FOR AFR.AMER. > 60 ML/MIN (>=60 (CALC)); LIPASE 145 u/l (23-300); POTASSIUM 3.6 mmol/l (3.5-5.1); SGOT/AST 25 u/l (14-36); TOTAL PROTEIN 7.8 g/dL (6.3-8.2)
[2020-11-15 08:21] LABS: D-DIMER 0.79 mg/L (0.19-0.60)
[2020-11-15 08:25] LABS: ALBUMIN 3.9 g/dL (3.2-5.0); ANION GAP 12 (6-22 (CALC)); SODIUM 130 mmol/l (137-146)
[2020-11-15] MEDS ORDERED: CYMBALTA60 MG PO (10:49)
[2020-11-15] MEDS ORDERED: BUSPAR5 MG PO (10:49)
[2020-11-15] MEDS ORDERED: XANAX0.25 MG PO (10:50)
[2020-11-15] MEDS ORDERED: OXYCODONE20 M1 PO (10:50)
[2020-11-15] MEDS ORDERED: DEXAMETHASONE2 MG PO (10:51)
[2020-11-15] MEDS ORDERED: LIDOCAINE PATCH 55 % TOP (10:51)
[2020-11-15] MEDS ORDERED: OXYCODONE5 M1 PO (10:52)
[2020-11-15] MEDS ORDERED: ZPAK PO (12:12)
[2020-11-15] MEDS ORDERED: VENTOLIN HFA IN (12:12)
[2020-11-15] MEDS ORDERED: DECADRON2 MG PO (12:12)
[2020-11-15 14:08] VITALS: BP 106/68
== END 2020-11-15 14:00 | disposition home or self-care (01) ==
LOC: ED 06:40
DX: U07.1 COVID-19 (principal); J12.82 Pneumonia due to coronavirus disease 2019; C34.12 Malignant neoplasm of upper lobe, left bronchus or lung; C79.51 Secondary malignant neoplasm of bone; J44.0 Chronic obstructive pulmonary disease with (acute) lower respiratory infection; I10 Essential (primary) hypertension; F32.9 Major depressive disorder, single episode, unspecified; F41.9 Anxiety disorder, unspecified; Z87.01 Personal history of pneumonia (recurrent); Z79.899 Other long term (current) drug therapy
CPT/HCPCS: Q9967